=== PATIENT | male | born 1980 | race Caucasian/White ===

== ENCOUNTER 2021-06-10 02:57 | Emergency (ER) | payer OTHER ==
[2021-06-10] MEDS ORDERED: Sodium Chloride 0.9% 10 ML Syringe FLUSH PRN (03:27)
[2021-06-10] MEDS ORDERED: Sodium Chloride 0.9% 1,000 ML IV ONE (03:27)
[2021-06-10] MEDS ORDERED: Sodium Chloride 0.9% 2.5 ML Syringe FLUSH PRN (03:27)
--- NOTE | 2021-06-10 03:29 | EDM.PDOC ---
ED HPI GENERAL MEDICAL PROBLEM - General Chief Complaint: Abdominal Pain Time Seen by Provider: 06/10/21 03:23 - History of Present Illness INITIAL COMMENTS - FREE TEXT/NARRATIVE: HISTORY AND PHYSICAL: History of present illness: Is a 41-year-old gentleman who has a history significant for appendicitis, internal hemorrhoids bleeding, stomach ulcers on pantoprazole, who presents ER today secondary to weakness, dizziness, and concerns that his hemoglobin might be low may need a blood transfusion. Patient reports that he has had intermittent episodes of blood in the stool and was concerned because today he started having more symptoms. Patient reports he has been able to tolerate p.o. solids and liquids fairly well but has had decreased appetite. Patient denies any recent fevers, shakes, chills, nausea, vomiting, diarrhea, dysuria, frequency or urgency, chest pain, shortness of breath. Patient reports he has been taking his pantoprazole religiously. Review of systems: As per history of present illness and below otherwise all systems reviewed and negative. Past medical history: As per history of present illness and as reviewed below otherwise noncontributory. Surgical history: As per history of present illness and as reviewed below otherwise noncontributory. Social history: No reported history of drug abuse. Family history: As per history of present illness and as reviewed below otherwise noncontributory. Physical exam: This patient was seen and evaluated during the 2019 SARS-CoV-2 novel coronavirus pandemic period. Community viral transmission is ongoing at time of this encounter and the emergency department is operating under pandemic response procedures. Constitutional: Patient is oriented to person, place, and time. Appears well- developed and well-nourished. No distress. HEENT: Moist mucous membranes Head: Normocephalic and atraumatic Eyes: Right eye exhibits no discharge. Left eye exhibits no discharge. No scleral icterus Neck: Normal range of motion. No tracheal deviation present. Cardiovascular: Normal rate and regular rhythm. Pulmonary: Effort normal, no respiratory distress. Abd: Soft, nondistended, no rebound/guarding, no psoas or obturator signs, no tenderness at Mcberney's point, no Haile's sign. Pt does not present with an exam that would be consistent with an acute surgical abdomen at this time. Nontender to palpation except in the lower abdomen. Musculoskeletal: Normal range of motion Neurologic: Alert and oriented to person, place and time. Skin: Mcdonough, warm and dry. Psychiatric: Normal mood and affect. Behavior is normal. Judgment and thought content normal. Nursing note and vital signs have been reviewed Diagnostics: CBC, CMP, CT scan of the abdomen pelvis Therapeutics: Patient required treatment with intravenous normal saline solution secondary to clinical evidence of dehydration as manifested by history and physical examination. Assessment and plan: 41-year-old gentleman who presents ER today complaining of abdominal pain, weakness and dizziness and concerns about bloody stools. Patient had a CBC, CMP, CT scan of the abdomen pelvis ordered and will be reevaluated after. Patient's labs were all within normal limits. Patient had normal CBC and normal hemoglobin. Patient had a CT scan of his abdomen pelvis to her diverticulosis which was normal. Patient vital signs have been within normal limits in the ED. Given patient with normal labs and normal CT scan I feel patient is stable for discharge home with outpatient follow-up for continued evaluation of his symptoms. Definitive disposition and diagnosis as appropriate pending reevaluation and review of above. Abdomen Pain Score (Numeric/FACES): 5 - Related Data Allergies Allergy/AdvReac Type Severity Reaction Status Date / Time Penicillins Allergy Rash Verified 06/10/21 03:24 Home Meds: Home Meds Pantoprazole [ProTONIX] 40 mg PO DAILY 06/10/21 [History] Social & Family History - Recreational Drug Use Recreational Drug Use: No Drug Use in Last 12 Months: Yes ED ROS GENERAL - Review of Systems Review Of Systems: See Below ED EXAM, GENERAL - Physical Exam Exam: See Below Course - Vital Signs Last Recorded V/S: Last Vital Signs Temp 97.0 F 06/10/21 03:19 Pulse 101 H 06/10/21 03:19 Resp 16 06/10/21 03:19 BP 124/79 06/10/21 03:19 Pulse Ox 96 06/10/21 03:19 - Orders/Labs/Meds Orders: Active Orders 24 hr Category Date Time Status Sodium Chloride 0.9% [Saline Flush] Med 06/10/21 03:27 Active 10 ml FLUSH ASDIRECTED PRN Sodium Chloride 0.9% [Saline Flush] Med 06/10/21 03:27 Active 2.5 ml FLUSH ASDIRECTED PRN Saline Lock Insert [OM.PC] Stat Oth 06/10/21 03:27 Ordered Medication Orders Sodium Chloride (Sodium Chloride 0.9% 10 Ml Syringe) 10 ml FLUSH ASDIRECTED PRN PRN Reason: Keep Vein Open Last Admin: 06/10/21 03:41 Dose: 10 ml Documented by: PEDRO Sodium Chloride (Sodium Chloride 0.9% 2.5 Ml Syringe) 2.5 ml FLUSH ASDIRECTED PRN PRN Reason: Keep Vein Open Last Admin: 06/10/21 03:42 Dose: 2.5 ml Documented by: PEDRO Labs: Laboratory Tests 06/10/21 06/10/21 Range/Units 03:40 03:40 WBC 9.59 (4.0-11.0) K/uL RBC 5.54 (4.50-5.90) M/uL Hgb 13.3 (13.0-17.0) g/dL Hct 40.7 (38.0-50.0) % MCV 73.5 L (80.0-98.0) fL MCH 24.0 L (27.0-32.0) pg MCHC 32.7 (31.0-37.0) g/dL RDW Std Deviation 50.0 (28.0-62.0) fl RDW Coeff of Victor Hugo 18 H (11.0-15.0) % Plt Count 369 (150-400) K/uL MPV 8.80 (7.40-12.00) fL Neut % (Auto) 53.5 (48.0-80.0) % Lymph % (Auto) 33.6 (16.0-40.0) % [place] % (Auto) 10.4 (0.0-15.0) % Eos % (Auto) 2.1 (0.0-7.0) % Baso % (Auto) 0.4 (0.0-1.5) % Neut # (Auto) 5.1 (1.4-5.7) K/uL Lymph # (Auto) 3.2 H (0.6-2.4) K/uL [place] # (Auto) 1.0 H (0.0-0.8) K/uL Eos # (Auto) 0.2 (0.0-0.7) K/uL Baso # (Auto) 0.0 (0.0-0.1) K/uL Nucleated RBC % 0.0 /100WBC Nucleated RBCs # 0 K/uL Sodium 138 (136-148) mmol/L Potassium 4.0 (3.5-5.1) mmol/L Chloride 102 (98-107) mmol/L Carbon Dioxide 25.5 (21.0-32.0) mmol/L BUN 11 (7.0-18.0) mg/dL Creatinine 1.3 (0.8-1.3) mg/dL Est Cr Clr Drug Dosing 82.08 mL/min Estimated GFR (MDRD) > 60.0 ml/min Glucose 122 H (74-106) mg/dL Calcium 8.1 L (8.5-10.1) mg/dL Total Bilirubin 0.4 (0.2-1.0) mg/dL AST 27 (15-37) IU/L ALT 36 (14-63) IU/L Alkaline Phosphatase 43 L (46-116) U/L Total Protein 6.9 (6.4-8.2) g/dL Albumin 3.4 (3.4-5.0) g/dL Globulin 3.5 (2.6-4.0) g/dL Albumin/Globulin Ratio 1.0 (0.9-1.6) Lipase 85 (73-393) U/L Meds: Medications Generic Name Dose Route Start Last Admin Trade Name Freq PRN Reason Stop Dose Admin Sodium Chloride 10 ml 06/10/21 03:27 06/10/21 03:41 Sodium Chloride 0.9% 10 Ml Syringe FLUSH 10 ml ASDIRECTED PRN Administration Keep Vein Open Sodium Chloride 2.5 ml 06/10/21 03:27 06/10/21 03:42 Sodium Chloride 0.9% 2.5 Ml Syringe FLUSH 2.5 ml ASDIRECTED PRN Administration Keep Vein Open Discontinued Medications Generic Name Dose Route Start Last Admin Trade Name Freq PRN Reason Stop Dose Admin Sodium Chloride 1,000 mls @ 999 mls/hr 06/10/21 03:27 06/10/21 03:41 Normal Saline IV 06/10/21 04:27 999 mls/hr .Bolus ONE Administration Departure - Departure Time of Disposition: 04:55 Disposition: Home, Self-Care 01 Condition: Good Clinical Impression: Rectal bleeding, Internal hemorrhoids - Discharge Information Instructions: Rectal Bleeding Referrals: PCP,None [Primary Care Provider] - Forms: ED Department Discharge Additional Instructions: You were seen and evaluated in the ER today secondary to multiple episodes in the recent past of rectal bleeding with dizziness. Your blood tests and CT scan of your abdomen pelvis are all within normal limits. You will likely need to see your family doctor to set up an appointment for an outpatient colonoscopy for further evaluation of the source of your rectal bleeding. The following information is given to patients seen in the emergency department who are being discharged to home. This information is to outline your options for follow-up care. We provide all patients seen in our emergency department with a follow-up referral. The need for follow-up, as well as the timing and circumstances, are variable depending upon the specifics of your emergency department visit. If you don't have a primary care physician on staff, we will provide you with a referral. We always advise you to contact your personal physician following an emergency department visit to inform them of the circumstance of the visit and for follow-up with them and/or the need for any referrals to a consulting specialist. The emergency department will also refer you to a specialist when appropriate. This referral assures that you have the opportunity for follow-up care with a specialist. All of these measure are taken in an effort to provide you with optimal care, which includes your follow-up. Under all circumstances we always encourage you to contact your private physician who remains a resource for coordinating your care. When calling for follow-up care, please make the office aware that this follow-up is from your recent emergency room visit. If for any reason you are refused follow-up, please contact the [facility] Emergency Department at and asked to speak to the emergency department charge nurse. [facility] [address] [place] [address] [id number] [address] [address] Sepsis Event Note (ED) - Evaluation Sepsis Screening Result: No Definite Risk - Focused Exam Vital Signs: Vital Signs Temp Pulse Resp BP Pulse Ox 06/10/21 03:19 97.0 F 101 H 16 124/79 96 - My Orders Last 24 Hours: My Active Orders 06/10/21 03:27 Sodium Chloride 0.9% [Saline Flush] 10 ml FLUSH ASDIRECTED PRN Sodium Chloride 0.9% [Saline Flush] 2.5 ml FLUSH ASDIRECTED PRN Saline Lock Insert [OM.PC] Stat - Assessment/Plan Last 24 Hours: My Active Orders 06/10/21 03:27 Sodium Chloride 0.9% [Saline Flush] 10 ml FLUSH ASDIRECTED PRN Sodium Chloride 0.9% [Saline Flush] 2.5 ml FLUSH ASDIRECTED PRN Saline Lock Insert [OM.PC] Stat
[2021-06-10 04:13] LABS: BLOOD UREA NITROGEN,BUN 11 mg/dL (7.0-18.0); CARBON DIOXIDE,CO2 25.5 mmol/L (21.0-32.0); CHLORIDE,CL 102 mmol/L (98-107); GLUCOSE RANDOM 122 mg/dL (74-106); LIPASE 85 U/L (73-393); SODIUM,NA 138 mmol/L (136-148)
--- NOTE | 2021-06-10 04:37 | CT ---
Indication: Abdominal pain Technique: Nonenhanced axial CT imaging through the abdomen and pelvis. Sagittal and coronal reconstructions are provided. Comparison: None Findings: There is normal renal parenchymal attenuation without hydronephrosis. No stones are seen in the renal collecting systems, ureters, or urinary bladder. The urinary bladder is unremarkable. There is unremarkable noncontrast appearance of the liver, gallbladder, spleen, pancreas, and adrenal glands. There is normal caliber of the abdominal aorta. There is no abdominal or pelvic lymphadenopathy. The stomach and duodenum are unremarkable. There is normal caliber of the small bowel. The appendix is not visualized. There is no colonic wall thickening or mesenteric edema. The osseous structures are unremarkable. The included lung bases are clear. Impression: No acute abnormality demonstrated in the abdomen and pelvis. No nephrolithiasis or urinary obstruction. Nonvisualized appendix. Correlate for history of appendectomy. Please note that all CT scans at this facility use dose modulation, iterative reconstruction, and/or weight-based dosing when appropriate to reduce radiation dose to as low as reasonably achievable. Dictated by Leena Hopkins MD @ 06/10/2021 4:36:50 AM (Electronically Signed)
== END 2021-06-10 05:09 | disposition home or self-care (01) ==
LOC: MW.ED 02:57
DX: K62.5 Hemorrhage of anus and rectum (principal); K64.8 Other hemorrhoids; Z88.0 Allergy status to penicillin; Z79.899 Other long term (current) drug therapy
CPT/HCPCS: 36415; 74176; 80053; 83690; 85025; 99283; J7030